=== PATIENT | female | born 1950 ===

== ENCOUNTER 2020-08-30 10:00 | Emergency (ER) | payer OTHER ==
[~2020-08-30] VITALS: Ht 154.9 cm; Wt 113.4 kg
[2020-08-30] MEDS ORDERED: CYMBALTA60 MG PO (10:12)
[2020-08-30] MEDS ORDERED: DIOVAN160 M1 PO (10:13)
[2020-08-30] MEDS ORDERED: LIPITOR40 M1 PO (10:14)
[2020-08-30] MEDS ORDERED: MUCINEX DM ER1 EAC1 PO (16:06)
[2020-08-30] MEDS ORDERED: LEVALBUTER1.25 MG/3 IH (16:06)
[2020-08-30] MEDS ORDERED: BUDESONIDE0.5 MG/2 M IH (16:06)
[2020-08-30] MEDS ORDERED: OSEL75CA PO (16:06)
== END 2020-08-30 16:50 | disposition home or self-care (01) ==
LOC: ER 10:00
DX: J10.1 Influenza due to other identified influenza virus with other respiratory manifestations (principal); B34.9 Viral infection, unspecified; Z03.818 Encounter for observation for suspected exposure to other biological agents ruled out; R06.02 Shortness of breath; R05 Cough; R50.9 Fever, unspecified

== ENCOUNTER 2020-09-08 16:56 | Inpatient (IN) | payer OTHER ==
[~2020-09-08] VITALS: Ht 152.4 cm; Wt 99.8 kg
[~2020-09-08 16:56] MED LIST: BUDESONIDE0.5 MG/2 M IH; CYMBALTA60 MG PO; DIOVAN160 M1 PO; LEVALBUTER1.25 MG/3 IH; LIPITOR40 M1 PO; MUCINEX DM ER1 EAC1 PO; OSEL75CA PO
[2020-09-13] MEDS ORDERED: BENZONATATE100 MG PO (12:33)
[2020-09-13] MEDS ORDERED: INTESTINEX680 M1 PO (12:33)
[2020-09-13] MEDS ORDERED: PEPCID AC20 MG PO (12:33)
[2020-09-13] MEDS ORDERED: TUSSIN MUC100 MG/5 M PO (12:33)
[2020-09-13] MEDS ORDERED: FLUCONAZOLE100 MG PO (12:33)
[2020-09-13] MEDS ORDERED: MEDROLPACK PO (12:33)
[2020-09-13] MEDS ORDERED: MONTELUKAST SOD10 MG PO (12:33)
[2020-09-13] MEDS ORDERED: AMOX-CLAV 875-1 EACH PO (12:33)
== END 2020-09-13 15:10 | disposition home or self-care (01) | DRG 190 ==
LOC: ER 16:56 → MEDI 22:10 → MEDJ 09-09 02:24 → MEDI 09-09 02:27
PROVIDERS: ADMIT Internal Medicine; ATTEND Internal Medicine
PROC: CB2YYZZ Tomographic (Tomo) Nuclear Medicine Imaging of Respiratory System using Other Radionuclide (ICD-10-PCS; 2020-09-08)
PROC: B24BZZZ Ultrasonography of Heart with Aorta (ICD-10-PCS; principal; 2020-09-09)
PROC: 4A12X4Z Monitoring of Cardiac Electrical Activity, External Approach (ICD-10-PCS; 2020-09-09)
PROC: 3E0F7SF Introduction of Other Gas into Respiratory Tract, Via Natural or Artificial Opening (ICD-10-PCS; 2020-09-13)
DX: J43.9 Emphysema, unspecified (principal); J18.9 Pneumonia, unspecified organism; B37.49 Other urogenital candidiasis; R09.02 Hypoxemia; F32.9 Major depressive disorder, single episode, unspecified; Z20.822 Contact with and (suspected) exposure to COVID-19; E66.9 Obesity, unspecified
CPT/HCPCS: 71275

== ENCOUNTER 2020-09-19 14:42 | Inpatient (IN) | payer OTHER ==
[~2020-09-19] VITALS: Ht 167.6 cm; Wt 90.7 kg
[~2020-09-19 14:42] MED LIST changes: +AMOX-CLAV 875-1 EACH PO; +BENZONATATE100 MG PO; +FLUCONAZOLE100 MG PO; +INTESTINEX680 M1 PO; +MEDROLPACK PO; +MONTELUKAST SOD10 MG PO; +PEPCID AC20 MG PO; +TUSSIN MUC100 MG/5 M PO
[2020-10-12] MEDS ORDERED: FAMOTIDINE20 MG PO (08:12)
[2020-10-12] MEDS ORDERED: DILTIAZEM 24HR180 MG PO (08:12)
[2020-10-12] MEDS ORDERED: LANOXIN250 MCG PO (08:12)
[2020-10-12] MEDS ORDERED: CYMBALTA30 MG PO (08:12)
[2020-10-12] MEDS ORDERED: ELIQUIS5 MG PO (08:12)
[2020-10-12] MEDS ORDERED: AMIODARONE HCL200 MG PO (08:12)
[2020-10-12] MEDS ORDERED: CLOTRIMAZOLE28 GM TOP (08:12)
[2020-10-12] MEDS ORDERED: LASIX20 MG PO (08:12)
== END 2020-10-12 19:18 | disposition home or self-care (01) | DRG 309 ==
LOC: ER 14:42 → MEDI 21:08 → ICU 21:08 → MEDI 09-25 17:43
PROVIDERS: ADMIT Internal Medicine; ATTEND Internal Medicine
PROC: 3E0F7SF Introduction of Other Gas into Respiratory Tract, Via Natural or Artificial Opening (ICD-10-PCS; 2020-09-19)
PROC: 4A12X4Z Monitoring of Cardiac Electrical Activity, External Approach (ICD-10-PCS; principal; 2020-09-25)
PROC: 02HV33Z Insertion of Infusion Device into Superior Vena Cava, Percutaneous Approach (ICD-10-PCS; 2020-09-27)
DX: I48.91 Unspecified atrial fibrillation (principal); J44.1 Chronic obstructive pulmonary disease with (acute) exacerbation; G47.33 Obstructive sleep apnea (adult) (pediatric); F32.9 Major depressive disorder, single episode, unspecified; Z20.822 Contact with and (suspected) exposure to COVID-19; E87.6 Hypokalemia; E66.01 Morbid (severe) obesity due to excess calories; Z68.32 Body mass index [BMI] 32.0-32.9, adult

== ENCOUNTER 2020-10-15 12:38 | Inpatient (IN) | payer OTHER ==
[~2020-10-15] VITALS: Ht 154.9 cm; Wt 104.3 kg
[~2020-10-15 12:38] MED LIST changes: +AMIODARONE HCL200 MG PO; +CLOTRIMAZOLE28 GM TOP; +CYMBALTA30 MG PO; +DILTIAZEM 24HR180 MG PO; +ELIQUIS5 MG PO; +FAMOTIDINE20 MG PO; +LANOXIN250 MCG PO; +LASIX20 MG PO
[2020-10-28] MEDS ORDERED: FLUCONAZOLE100 MG PO (14:33)
[2020-10-28] MEDS ORDERED: MACROBID 100 M100 MG PO (14:33)
[2020-10-28] MEDS ORDERED: ULTRAM50 MG PO (14:33)
[2020-10-28] MEDS ORDERED: INTESTINEX680 M1 PO (14:33)
== END 2020-10-28 23:14 | disposition home or self-care (01) | DRG 690 ==
LOC: ER 12:38 → MEDJ 23:31 → MEDI 23:31
PROVIDERS: ADMIT Internal Medicine; ATTEND Internal Medicine
PROC: 0TCB8ZZ Extirpation of Matter from Bladder, Via Natural or Artificial Opening Endoscopic (ICD-10-PCS; principal; 2020-10-15)
PROC: 4A12X4Z Monitoring of Cardiac Electrical Activity, External Approach (ICD-10-PCS; 2020-10-15)
PROC: 8E0ZXY6 Isolation (ICD-10-PCS; 2020-10-15)
PROC: BW2110Z Computerized Tomography (CT Scan) of Abdomen and Pelvis using Low Osmolar Contrast, Unenhanced and Enhanced (ICD-10-PCS; 2020-10-15)
PROC: 3E0F7SF Introduction of Other Gas into Respiratory Tract, Via Natural or Artificial Opening (ICD-10-PCS; 2020-10-15)
PROC: BW2110Z Computerized Tomography (CT Scan) of Abdomen and Pelvis using Low Osmolar Contrast, Unenhanced and Enhanced (ICD-10-PCS; 2020-10-19)
PROC: 4A033R1 Measurement of Arterial Saturation, Peripheral, Percutaneous Approach (ICD-10-PCS; 2020-10-21)
DX: N30.81 Other cystitis with hematuria (principal); I48.91 Unspecified atrial fibrillation; Z79.01 Long term (current) use of anticoagulants; K57.30 Diverticulosis of large intestine without perforation or abscess without bleeding; G47.33 Obstructive sleep apnea (adult) (pediatric); J44.9 Chronic obstructive pulmonary disease, unspecified; Z99.81 Dependence on supplemental oxygen; K59.09 Other constipation; L53.8 Other specified erythematous conditions; I10 Essential (primary) hypertension; B96.1 Klebsiella pneumoniae [K. pneumoniae] as the cause of diseases classified elsewhere; Z72.3 Lack of physical exercise; Z20.822 Contact with and (suspected) exposure to COVID-19

== ENCOUNTER 2021-11-27 20:10 | Emergency (ER) | payer OTHER ==
[~2021-11-27] VITALS: Ht 152.4 cm; Wt 80.7 kg
[~2021-11-27 20:10] MED LIST changes: +MACROBID 100 M100 MG PO; +ULTRAM50 MG PO
== END 2021-11-28 01:44 | disposition home or self-care (01) ==
LOC: ER 20:10
DX: S00.03XA Contusion of scalp, initial encounter (principal); W18.30XA Fall on same level, unspecified, initial encounter; Y93.9 Activity, unspecified; Y92.019 Unspecified place in single-family (private) house as the place of occurrence of the external cause; Z88.6 Allergy status to analgesic agent; Z88.0 Allergy status to penicillin; I49.9 Cardiac arrhythmia, unspecified; E03.9 Hypothyroidism, unspecified; I10 Essential (primary) hypertension; R55 Syncope and collapse

== ENCOUNTER → 2022-03-09 | Day surgery (SDC) | payer OTHER ==
[~2022-03-09] VITALS: Ht 152.4 cm; Wt 79.8 kg
== END | disposition home or self-care (01) ==
LOC: ADM 03-06 15:00 → CIR.AMB 06:00
PROVIDERS: ATTEND Surgery
DX: C50.911 Malignant neoplasm of unspecified site of right female breast (principal); N60.91 Unspecified benign mammary dysplasia of right breast; R59.0 Localized enlarged lymph nodes; I11.9 Hypertensive heart disease without heart failure; E03.9 Hypothyroidism, unspecified; F32.A Depression, unspecified; F41.9 Anxiety disorder, unspecified; E66.01 Morbid (severe) obesity due to excess calories; Z87.891 Personal history of nicotine dependence; Z88.0 Allergy status to penicillin; Z88.6 Allergy status to analgesic agent; Z20.822 Contact with and (suspected) exposure to COVID-19
CPT/HCPCS: 19281; 19301; 38525; 38792; A9541; L8699